=== PATIENT | female | born 1930 | race Caucasian/White ===

== ENCOUNTER 2019-02-07 07:59 | Inpatient (IN) | payer MEDICARE | END 2019-02-07 18:35 | disposition home or self-care (01) | LOC: SSTAY O 07:59 → CICU 2S 11:34 → S STAY 16:38 ==

== ENCOUNTER 2019-07-29 06:51 | Day surgery (SDC) | payer MEDICARE ==
[~2019-07-29] VITALS: Ht 152.4 cm; Wt 60.0 kg
[2019-07-29] VITALS (10 sets, daily range): BP systolic 100–154; BP diastolic 47–65
[~2019-07-29 06:51] MED LIST: ATOR40TA PO; CLOP75TA15 PO; FURO-150 PO; HUM10VIA SQ; IBUP-24 PO; LISI-600 PO; METO25TA6 PO; NITR0.4T SL
[2019-07-29] MEDS ORDERED: diphenhydrAMINE 25mg capsule PO PRN (07:20)
[2019-07-29] MEDS ORDERED: normal saline 1,000 ML IV SCH (07:20)
[2019-07-29] MEDS ORDERED: FURO20TA4 PO (07:45)
[2019-07-29] MEDS ORDERED: DOCU-148 PO (07:45)
[2019-07-29] MEDS ORDERED: ISOS30TA6 PO (07:45)
[2019-07-29] MEDS ORDERED: ACET325C6 PO (07:45)
[2019-07-29] MEDS ORDERED: fentaNYL/PF 50MCG/1 ML 2ML syringe ONE (08:52)
[2019-07-29] MEDS ORDERED: LIDOcaine 1% (10mg/ml)w/preservative injection 20ml MDV ONE ×2 (08:52→11:24)
[2019-07-29] MEDS ORDERED: midazolam 2 mg/2 ml injection ONE ×2 (08:52→09:51)
[2019-07-29] MEDS ORDERED: heparin 1,000unit/ml 10ml vial 10 ML ONE (08:52)
[2019-07-29] MEDS ORDERED: iohexol 350 MG/1 ML 200ml bottle ONE (08:52)
[2019-07-29] MEDS ORDERED: hydrocortisone sod succ/PF 100mg/2ml inj. ONE (09:30)
[2019-07-29] MEDS ORDERED: diphenhydrAMINE 50 mg/ml inj ONE (09:30)
[2019-07-29 10:20] LABS: BASOPHILS % (AUTO) 0.2 % (0-1); EOSINOPHILS % (AUTO) 0.3 % (0-6); HEMATOCRIT 30.6 % (35.0-45.0); HEMOGLOBIN 10.4 g/dl (12.0-16.0); LYMPHOCYTES # (AUTO) 1.2 X10'3 (1.1-4.8); LYMPHOCYTES % (AUTO) 12.9 % (21-51); MEAN CORPUSCULAR HGB CONC 33.8 g/dL (33.0-36.5); MEAN CORPUSCULAR VOLUME 91.8 FL (78-98); MEAN PLATELET VOLUME 8.5 FL (7.4-10.4); MONOCYTES # (AUTO) 0.8 X10'3 (0-0.9); NEUTROPHILS # (AUTO) 7.6 X10'3 (1.8-7.7); NEUTROPHILS % (AUTO) 78.6 % (42-75); PLATELET COUNT 291 X10'3 (140-440); RED BLOOD COUNT 3.34 X10'6 (4.20-5.60); RED CELL DISTRIBUTION WIDTH 18.4 % (11.5-14.5); WHITE BLOOD COUNT 9.7 X10'3 (4.5-11.0)
[2019-07-29 10:29] LABS: PARTIAL THROMBOPLASTIN TIME 29 SECONDS (22-32)
[2019-07-29 10:32] LABS: ALANINE AMINOTRANSFERASE 14 U/L (12-78); ALBUMIN/GLOBULIN RATIO 0.9 (1.1-1.5); ALKALINE PHOSPHATASE 74 IU/L (46-116); ANION GAP 13 (8-16); ASPARTATE AMINO TRANSFERASE 15 U/L (10-37); BILIRUBIN,TOTAL 0.6 MG/DL (0.1-1.0); BLOOD UREA NITROGEN 40 MG/DL (7-18); BUN/CREATININE RATIO 19.1 (6.6-38.0); CALCIUM 8.3 MG/DL (8.5-10.1); CHLORIDE 107 MMOL/L (99-107); CREATININE 2.09 MG/DL (0.40-0.90); GLUCOSE 100 MG/DL (70-104); MAGNESIUM 2.1 MG/DL (1.5-2.4); POTASSIUM 4.1 MMOL/L (3.5-5.1); SODIUM 140 MMOL/L (135-145); TOTAL CARBON DIOXIDE 19.6 MMOL/L (24-32); TOTAL PROTEIN 6.5 G/DL (6.4-8.2); eGFR 22 ML/MIN
[2019-07-29] MEDS ORDERED: heparin 1,000 UNITS/NS 500ml 500 ML ONE (10:35)
[2019-07-29] MEDS ORDERED: HYDROmorphone 1 mg/ml syringe ONE (11:30)
[2019-07-29] MEDS ORDERED: furosemide 40mg/4ml inj ONE (11:40)
== END 2019-07-29 15:20 | disposition home or self-care (01) ==
LOC: SSTAY O 06:51
PROVIDERS: ATTEND Internal Medicine Cardiovascular Disease
DX: E11.51 Type 2 diabetes mellitus with diabetic peripheral angiopathy without gangrene (principal); I70.212 Atherosclerosis of native arteries of extremities with intermittent claudication, left leg; E78.5 Hyperlipidemia, unspecified; I10 Essential (primary) hypertension; Z79.01 Long term (current) use of anticoagulants; Z79.899 Other long term (current) drug therapy; Z79.4 Long term (current) use of insulin; Z90.49 Acquired absence of other specified parts of digestive tract; Z95.5 Presence of coronary angioplasty implant and graft; Z88.8 Allergy status to other drugs, medicaments and biological substances
CPT/HCPCS: 36415; 37226; 80053; 82948; 83735; 85025; 85610; 85730; 99152; 99153; C1725; C1760; C1769; C1876; C1894; J1170; J1200; J1644; J1720; J1940; J2001; J2250; J3010; J7030; Q9967; 36140; 36246; 37224; A4620; A6258; C2623

== ENCOUNTER 2020-02-06 09:09 | Observation (INO) | payer MEDICARE, MEDICAID ==
[2020-02-06] VITALS (17 sets, daily range): BP systolic 122–160; BP diastolic 42–85
[~2020-02-06] VITALS: Ht 152.4 cm; Wt 60.5 kg
[~2020-02-06 09:09] MED LIST changes: +ACET325C6 PO; +DOCU-148 PO; -FURO-150 PO; +FURO20TA4 PO; -IBUP-24 PO; +ISOS30TA6 PO
[2020-02-06] MEDS ORDERED: diphenhydrAMINE 25mg capsule PO PRN (09:40)
[2020-02-06] MEDS ORDERED: METO25TA6 PO (09:45)
[2020-02-06] MEDS ORDERED: BUME2TAB7 PO (09:50)
[2020-02-06] MEDS ORDERED: PANT40TA4 PO (09:50)
[2020-02-06] MEDS ORDERED: FERR-29 PO (09:50)
[2020-02-06] MEDS ORDERED: LIDOcaine 1% W/epiNEPHrine 1:100,000 20ml vial ONE (10:41)
[2020-02-06] MEDS ORDERED: ceFAZolin 1000mg inj ONE (10:41)
[2020-02-06] MEDS ORDERED: vancomycin 1,000mg inj ONE (10:41)
[2020-02-06] MEDS ORDERED: iohexol 350 MG/ML 50ML vial IV ONE (10:41)
[2020-02-06] MEDS ORDERED: midazolam 2 mg/2 ml injection ONE ×2 (10:41→11:27)
[2020-02-06] MEDS ORDERED: fentaNYL/PF 50MCG/1 ML 2ML syringe ONE ×2 (10:41→12:11)
[2020-02-06] MEDS ORDERED: LIDOcaine 1% (10mg/ml)w/preservative injection 20ml MDV ONE (10:41)
[2020-02-06] MEDS ORDERED: iohexol 350MG/ML 100ml bottle IV ONE ×2 (10:41→11:53)
[2020-02-06 10:44] LABS: ALBUMIN 3.6 G/DL (3.4-5.0); ANION GAP 10 (8-16); BLOOD UREA NITROGEN 30 MG/DL (7-18); BUN/CREATININE RATIO 17.4 (6.6-38.0); CALCIUM 9.3 MG/DL (8.5-10.1); CHLORIDE 107 MMOL/L (99-107); CREATININE 1.72 MG/DL (0.40-0.90); GLUCOSE 133 MG/DL (70-104); POTASSIUM 4.2 MMOL/L (3.5-5.1); SODIUM 142 MMOL/L (135-145); TOTAL CARBON DIOXIDE 25.5 MMOL/L (24-32); eGFR 28 ML/MIN
[2020-02-06] MEDS: normal saline 1,000 ML IV SCH ×2 (10:47→19:40)
[2020-02-06 10:48] LABS: HEMOGLOBIN 10.6 g/dl (12.0-16.0)
[2020-02-06 10:51] LABS: MEAN CORPUSCULAR VOLUME 81.2 FL (78-98); MEAN PLATELET VOLUME 9.3 FL (7.4-10.4); PLATELET COUNT 195 X10'3 (140-440); RED BLOOD COUNT 4.07 X10'6 (4.20-5.60); RED CELL DISTRIBUTION WIDTH 22.3 % (11.5-14.5); WHITE BLOOD COUNT 7.9 X10'3 (4.5-11.0)
[2020-02-06 11:33] LABS: ANISOCYTOSIS 3+; PLATELET ESTIMATE NORMAL; TOTAL CELLS COUNTED 100
[2020-02-06] MEDS ORDERED: heparin 1,000unit/ml 10ml vial 10 ML ONE (11:49)
[2020-02-06] MEDS ORDERED: clopidogrel 300mg tablet ONE (12:31)
--- NOTE | 2020-02-06 13:15 | NUR ---
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 Pt with slight ooze from right groin, states to place Femstop for 2 hours.
--- NOTE | 2020-02-06 16:45 | NUR ---
Femstop removed and patient immediately begins to bleed from right groin. Manual pressure placed to groin x 35 minutes. Hemostasis achieved and fem stop re applied. Dr. Prescott called.
--- NOTE | 2020-02-06 18:00 | NUR ---
Dr. Prescott here to see patient. Right groin remains stable. Pt to be admitted overnight for closer observation.
[2020-02-06] MEDS ORDERED: nitroGLYCERIN 0.4mg SUBLingual tab SL PRN (18:35)
--- NOTE | 2020-02-06 19:20 | NUR ---
I have received report from ELAINE Benson (short stay) and had the opportunity to ask questions about the pt coming to [id number].
--- NOTE | 2020-02-06 19:22 | NUR ---
Report to Meredith on PCU, pt transferred up with belongings.
[2020-02-06] MEDS ORDERED: HumuLIN NPH/Reg 70/30 insulin 10ml vial SQ PRN (19:30)
--- NOTE | 2020-02-06 19:40 | NUR ---
Pt came to the unit via gurney, accompanied by the nurse and daughter. Pt belongings was with the pt. Pt was transferred unit bed, and she tolerated the transfer well. Pt put on tele monitor (#60) and MRSA nasal swab collected. DART was done at short stay unit per Pilar.
[2020-02-06] MEDS: docusate sod 100mg capsule PO SCH (20:59)
[2020-02-06] MEDS ORDERED: normal saline 1000ml 1,000 ML IV SCH (23:30)
[2020-02-07 02:00] VITALS: BP 100/58
--- NOTE | 2020-02-07 02:40 | NUR ---
Femostop discontinue, no bleeding, no hematoma noted. Peripheral pulses are weak/doppler. Pt is alert, no distress noted, denied any discomfort. Will continue to monitor.
--- NOTE | 2020-02-07 06:15 | NUR ---
Problems reprioritized. Patient report given, questions answered & plan of care reviewed with ELAINE Herrera.
[2020-02-07] MEDS: normal saline 1,000 ML IV SCH (06:45)
--- NOTE | 2020-02-07 06:51 | NUR ---
Patient in room PCU 3017. I have received report from ELAINE Stafford and had the opportunity to ask questions and assume patient care.
--- NOTE | 2020-02-07 06:52 | NUR ---
Per noc RN, Dr Prescott states to discharge pt at 0800 if no bleeding at cath site. Currently soft, no oozing or apparent bleeding. dressing CDI.
[2020-02-07] MEDS: docusate sod 100mg capsule PO SCH (08:00)
[2020-02-07] MEDS ORDERED: ferrous sulfate 325mg tablet PO SCH (08:00)
[2020-02-07] MEDS ORDERED: pantoprazole 40mg Tablet.DR PO SCH (08:00)
[2020-02-07] MEDS ORDERED: atorvastatin 20mg tablet PO SCH (08:00)
[2020-02-07] MEDS ORDERED: clopidogrel 75mg tablet PO SCH (08:00)
[2020-02-07] MEDS ORDERED: bumetanide 1mg tablet PO SCH (08:00)
[2020-02-07] MEDS ORDERED: metoprolol tartrate 25mg tablet PO SCH (08:00)
[2020-02-07 08:29] VITALS: BP_SYST 152
--- NOTE | 2020-02-07 11:13 | NUR ---
pt discharged. IV d/c'd, tele removed. no rx for pt. continue home meds. will follow up with Dr Prescott in one week. home in private vehicle with daughter.
--- NOTE | 2020-02-08 14:52 | NUR ---
Case Management DC follow up: spoke to pt daughter/Linda Tyler via telephone. Reports pt feeling "pretty good", "energy increasing", "still feels a little week" ambulating independently as tolerated, mostly just to the toilet. Went over orthostatic hypotension protocol as a precaution/verbalizes understanding, intends to comply. Denies pt has experienced CP, emergent general pain, SOB, respiratory distress, NV, dizziness, syncope episodes, abd pain, HIDALGO, blurry vision. Verbalizes understanding of medications and why prescribed. . Taking as ordered, no ase noted r/t polypharmacy/new meds. verbalizes understanding of s/s that would warrant -11/ER visit for evaluation. Acknowledges importance of scheduling/keeping appointments w/PCP/Gonzalez, will call to schedule/referrals/specialists/Dr Prescott wants to see pt in 1 week, will call to schedule, will go over pt medications and reconcile. Needs met, questions answered at DC. No further questions at this time.
== END 2020-02-07 09:23 | disposition home or self-care (01) ==
LOC: SSTAY O 09:09 → PCU 3S 23:29 → INTOOBSV 23:29
PROVIDERS: ADMIT Internal Medicine Cardiovascular Disease; ATTEND Internal Medicine Cardiovascular Disease
DX: I25.10 Atherosclerotic heart disease of native coronary artery without angina pectoris (principal); I42.9 Cardiomyopathy, unspecified; E11.22 Type 2 diabetes mellitus with diabetic chronic kidney disease; I12.9 Hypertensive chronic kidney disease with stage 1 through stage 4 chronic kidney disease, or unspecified chronic kidney disease; N18.9 Chronic kidney disease, unspecified; E11.51 Type 2 diabetes mellitus with diabetic peripheral angiopathy without gangrene; Z95.0 Presence of cardiac pacemaker; Z95.1 Presence of aortocoronary bypass graft; Z90.49 Acquired absence of other specified parts of digestive tract; Z79.4 Long term (current) use of insulin; Z79.899 Other long term (current) drug therapy
CPT/HCPCS: 36415; 80048; 82948; 83735; 85025; 85610; 87081; 93005; 93459; C1725; C1769; C1874; C1894; C9600; G0378; J0690; J1644; J2001; J2250; J3010; J3370; J7030; Q0163; Q9967; 99152; 99153; A6258; C1751; C1760

== ENCOUNTER 2020-03-30 08:56 | Day surgery (SDC) | payer MEDICARE, MEDICAID ==
[2020-03-30] VITALS (9 sets, daily range): BP systolic 132–156; BP diastolic 59–75
[~2020-03-30] VITALS: Ht 152.4 cm; Wt 57.4 kg
[~2020-03-30 08:56] MED LIST changes: -ACET325C6 PO; +BUME2TAB7 PO; +FERR-29 PO; -FURO20TA4 PO; -ISOS30TA6 PO; -LISI-600 PO; +PANT40TA4 PO
[2020-03-30] MEDS ORDERED: AMIO200T61 PO (10:13)
[2020-03-30] MEDS ORDERED: ISOS30TA6 PO (10:13)
[2020-03-30] MEDS ORDERED: ASPI-100 PO (10:13)
[2020-03-30] MEDS ORDERED: POTA8TAB57 PO (10:13)
[2020-03-30] MEDS ORDERED: MIRA25TA PO (10:13)
[2020-03-30] MEDS ORDERED: SENN-173 (10:13)
[2020-03-30] MEDS ORDERED: CHOL500049 PO (10:13)
[2020-03-30 11:50] LABS: TOTAL PROTEIN 7.1 G/DL (6.4-8.2)
== END 2020-03-30 11:30 | disposition home or self-care (01) ==
LOC: SSTAY O 08:56
PROVIDERS: ATTEND Radiology Vascular & Interventional Radiology
DX: J90 Pleural effusion, not elsewhere classified (principal); I25.10 Atherosclerotic heart disease of native coronary artery without angina pectoris; I42.0 Dilated cardiomyopathy; I50.9 Heart failure, unspecified; N18.9 Chronic kidney disease, unspecified; Z95.1 Presence of aortocoronary bypass graft; Z95.0 Presence of cardiac pacemaker; Z88.8 Allergy status to other drugs, medicaments and biological substances; Z79.899 Other long term (current) drug therapy
CPT/HCPCS: 32555; 36415; 71045; 82465; 83615; 84155; 84157; 87070; C1729